=== PATIENT | female | born 1990 | race Two or more races ===

== ENCOUNTER 2018-07-12 19:53 | Inpatient (IN) | payer MEDICAID, OTHER ==
[2018-07-12] MEDS ORDERED: EPSOM SALT 454 GM TP PRN (20:42)
[2018-07-12] MEDS ORDERED: TERBUTALINE SULFATE 1 MG/ML VIAL IV PRN (20:42)
[2018-07-12] MEDS ORDERED: LIDOCAINE 1% 300 MG/30 ML SDV SC PRN (20:42)
[2018-07-12] MEDS ORDERED: OLIVE OIL 118 ML BTL MISC PRN (20:42)
[2018-07-12] MEDS ORDERED: IBUPROFEN 600 MG TAB PO PRN (20:42)
[2018-07-12] MEDS ORDERED: MISOPROSTOL 200 MCG TAB PO PRN (20:42)
[2018-07-12] MEDS ORDERED: LR 1,000 ML IV PRN (20:42)
[2018-07-12] MEDS ORDERED: OXYTOCIN/RINGERS LACTATE 1,000 ML IV PRN (20:42)
[2018-07-12] MEDS ORDERED: AMMONIA AROMATIC 1 EACH AMP IH PRN (20:42)
[2018-07-12] MEDS ORDERED: NALOXONE HCL 0.4 MG/ML INJ IVP PRN (20:50)
[2018-07-12] MEDS ORDERED: ONDANSETRON 4 MG/2 ML VIAL IVP PRN (20:50)
[2018-07-12] MEDS ORDERED: PHENYLEPHRINE HCL 100 MCG/ML SYR IVP PRN (20:50)
[2018-07-12] MEDS ORDERED: METOCLOPRAMIDE 10 MG/2 ML VIAL IVP PRN (20:50)
[2018-07-12] MEDS ORDERED: BUPIVACAINE 0.25% 10 ML SDV ONE (20:52)
[2018-07-12 20:59] LABS: PLATELET COUNT 146 10^3/uL (150-400)
[2018-07-12] MEDS ORDERED: fentaNYL 2MCG/ML/BUP 0.1% RTU 100 ML EP SCH (21:00)
--- NOTE | 2018-07-12 21:56 | PDANEPAE ---
ANE Past Medical History - Cardiovascular History Hx Hypertension: No Hx Arrhythmias: No Hx Chest Pain: No - Pulmonary History Hx COPD: No Hx Asthma/Reactive Airway Disease: No Hx Recent Upper Respiratory Infection: No - Neurologic History Hx Cerebrovascular Accident: No - Endocrine History Hx Diabetes: No - Renal History Hx Renal Disorders: No - Liver History Hx Hepatic Disorders: No ANE Review of Systems Review of Systems: ANE Patient History - Allergies Allergies/Adverse Reactions: No Known Allergies Allergy (Unverified 11/01/10 09:02) - Home Medications Home Medications: NO HOME MEDICATIONS 11/01/10 [Last Taken Unknown] ANE Labs/Vital Signs - Labs Result Diagrams: 07/12/18 20:30 ANE Physical Exam - Airway Neck exam: FROM Mallampati Score: Class 2 Mouth exam: normal dental/mouth exam - Pulmonary Pulmonary: no respiratory distress, no rales or rhonchi, clear to auscultation - Cardiovascular Cardiovascular: regular rate and rhythym, no murmur, rub, or gallop - ASA Status ASA Status: II, E ANE Anesthesia Plan Anesthesia Plan: epidural
--- NOTE | 2018-07-12 21:59 | OBPROG ---
Labor Progress Note Assessment/Plan: Assessment: 27 y/o @ 38 5/7 weeks in active labor Plan: Pt making good change now comfortable with her epidural. AROM for meconium, will have [employer] at delivery. May augment with pitocin prn. status is reassuring. 07/12/18 22:00 Subjective/Intrapartum Course: 07/12/18 21:55 Pt is now comfortable with her epidural, starting to feel some pelvic pressure. Objective: 07/12/18 20:30 Patient ABO/Rh O POSITIVE 07/12/18 20:30 - SVE Dilation (cm): 6, 7 Effacement (%): 80 Station: -1 Membranes: AROM Amniotic Fluid Color: Thick Meconium - Contraction Pattern Assessment Current Contraction Pattern: Irregular (Q 3-5) - FHR Assessment Loo FHR (bpm): 130 FHR Pattern Variability: Moderate FHR Category: 1 - Procedures Non-surgical Procedures: Amniotomy - AP Antepartum Course: 07/12/18 22:00 anxiety, elevated BMI ICD10 Worksheet Patient Problems: Problems Problem Status Onset Normal labor Acute - ICD10 Problem Qualifiers (1) Normal labor
--- NOTE | 2018-07-12 22:06 | GHP ---
[f rep st] PREOP HISTORY AND PHYSICAL DATE OF ADMISSION: 07/12/2018 ADMITTING DIAGNOSIS: Intrauterine at 39 and 5/7 weeks' gestation in spontaneous active lab or. HISTORY OF PRESENT ILLNESS: The patient is a 27-year-old, 1, para 0, with a last menstrual p eriod of 10/07/2017, and an EDC of 07/14/2018, which was confirmed by an 8-week ultrasound. She has had good care at [facility] since registration at 8 weeks' gestation. Her prenata l risk factors include elevated BMI. Her starting weight was 172. History of anxiety. Sh nancy is not on any current medications. Low lying placenta which resolved. She presented complaining o f increased contractions starting early in the morning on the , which became more intense and bill ser together. When she presented to labor and delivery, she was having contractions every 3-5 minute s and they were intense, bringing her to tears. Her cervix was checked and she was 5 cm, 80%, -2, wi th a bulging bag of water and she is admitted for active labor management and patient wished to have an epidural for pain control. PAST OBSTETRICAL HISTORY: None. This is her first . GYNECOLOGICAL HISTORY: Her menarche at age 16, interval every 28 days. Length of 5 days. Sure on r egular last menstrual period of October 07, 2017. No history of abnormal Paps or STDs. The patient was not on control. MEDICAL HISTORY: She has a history of anxiety. She was on Zoloft, but not for very long and she is not on any current medications. PAST SURGICAL HISTORY: No significant past surgical history. ALLERGIES: No known drug allergies. MEDICATIONS: Include vitamins, vitamin B6, and Unisom in 1st trimester. SOCIAL HISTORY: She is to her . 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 She d enies tobacco, alcohol, and drug use. Urine drug screen was negative. LABS IN THIS : She is O positive. Antibody negative. RPR nonreactive. Rubella immune. H epatitis negative. HIV negative. Initial urine culture was positive for E coli. A test of cure was negative. Verifi was negative. Single marker AFP was negative. One hour GTT was 87. GBS was nega tive. Varicella immune. FAMILY HISTORY: Her mother has diabetes, as well as history of thyroid cancer, had a thyroidectomy. PHYSICAL EXAMINATION: VITAL SIGNS: She was afebrile. Vital signs are stable. heart tones ar e 140s, reactive, moderate variability, category 1. She is cathleen irregularly. Cervix on admis humza was 5, 80%, -2, bulging bag of water. Baby is cephalic. ASSESSMENT/PLAN: 27-year-old, 1, para 0, at 38 and 5/7 weeks' gestation, in active labor. Gallito isacjoann was admitted, has an epidural per request. Will have active labor management and status is reassuring. /[id number]/MODL
[2018-07-12] MEDS ORDERED: LIDOCAINE 1% 300 MG/30 ML SDV ONE (22:49)
[2018-07-12] MEDS ORDERED: OLIVE OIL 118 ML BTL MISC ONE (22:49)
[2018-07-12] MEDS ORDERED: TERBUTALINE SULFATE 1 MG/ML VIAL ONE (22:49)
[2018-07-12] MEDS ORDERED: AMMONIA AROMATIC 1 EACH AMP IH ONE (22:49)
[2018-07-12] MEDS ORDERED: OXYTOCIN 10 UNIT/ML VIAL ONE (22:50)
[2018-07-12] MEDS ORDERED: MISOPROSTOL 200 MCG TAB ONE (22:50)
[2018-07-12] MEDS ORDERED: ACETAMINOPHEN 500 MG TAB PO PRN (23:41)
[2018-07-13] MEDS ORDERED: ACETAMINOPHEN 500 MG TAB PO ONE (06:15)
[2018-07-13] MEDS ORDERED: AZITHROMYCIN IV 500 MG in NS 250 ML IV ONE (07:14)
[2018-07-13] MEDS ORDERED: ceFAZolin 2 GM/DEXTROSE 100 ML IV ONE (07:15)
[2018-07-13] MEDS ORDERED: morphINE PF 5 MG/10 ML INJ ONE (07:39)
[2018-07-13] MEDS ORDERED: OXYTOCIN 100 UNITS/10 ML VIAL ONE (08:34)
[2018-07-13] MEDS ORDERED: PHENYLEPHRINE HCL 100 MCG/ML SYR IVP PRN (09:16)
[2018-07-13] MEDS ORDERED: HYDROCODONE/APAP 5/325 TAB PO PRN (09:16)
[2018-07-13] MEDS ORDERED: HYDROmorphONE/DILAUDID 1 MG/ML INJ IVP PRN (09:16)
[2018-07-13] MEDS ORDERED: NALOXONE HCL 0.4 MG/ML INJ IVP PRN (09:16)
[2018-07-13] MEDS ORDERED: ONDANSETRON 4 MG/2 ML VIAL IVP PRN (09:16)
[2018-07-13] MEDS ORDERED: MEPERIDINE 25 MG/0.5 ML AMP IVP PRN (09:16)
[2018-07-13] MEDS ORDERED: OXYCODONE/APAP 5/325 TAB PO PRN (09:16)
--- NOTE | 2018-07-13 09:17 | POSTANESTH ---
Post Anesthetic Evaluation Cardiovascular Status: Normal, Stable Respiratory Status: Normal, Stable Level of Consciousness/Mental Status: Can Participate in Eval Pain Control: Adequate, Prn Tx Ordered Nausea/Vomiting Control: Adequate, Prn Tx Ordered Complications Possibly Related to Anesthesia: None Noted
[2018-07-13] MEDS ORDERED: MAGNESIUM HYDROXIDE 30 ML UDCUP PO PRN (09:29)
[2018-07-13] MEDS ORDERED: BISACODYL 10 MG SUPP PR PRN (09:29)
[2018-07-13] MEDS ORDERED: POLYETHYLENE GLYCOL 3350 17 GM PKT PO PRN (09:29)
[2018-07-13] MEDS ORDERED: LACTULOSE 20 GM/30 ML UDCUP PO PRN (09:29)
--- NOTE | 2018-07-13 09:35 | POSTOPPROG ---
Post Op Note Date of Operation: 07/13/18 Surgeon: Nubia Roberts Health Plan Manager: Shari Dodd SA Anesthesiologist: MD Estela Anesthesia: Epidural (with duramorph) Pre-op Diagnosis: IUP at 38+ wks, arrest of descent Post-op Diagnosis: same Indication: IUP with spont labor, thick mec, 2 hrs pushing without change, OP position Procedure: primary LTCS Findings: normal uterus, OP position, mec noted, NC x1, nl closure, inf midline ext Inf/Abcess present in the surg proc area at time of surgery?: No Depth: Organ Space EBL: 500-1000 (1000) Total fluids administered: 500 Complications: inferior extension of incision in midline. closed well with good hemostasis, double layer Bowel Protocol: Yes Clean Closure Performed: Yes Specimen(s): none
[2018-07-13] MEDS: KETOROLAC 30 MG/1 ML SDV IVP SCH ×3 (10:20→22:29)
[2018-07-13] MEDS: IBUPROFEN 600 MG TAB PO SCH ×2 (11:07→16:42)
--- NOTE | 2018-07-13 16:05 | POSTANESTH ---
Post Anesthetic Evaluation Cardiovascular Status: Normal, Stable, Similar to Pre-Op Cond Respiratory Status: Normal, Stable, Similar to Pre-op Cond. Level of Consciousness/Mental Status: Can Participate in Eval, Alert and Oriented Pain Control: Adequate, Prn Tx Ordered Nausea/Vomiting Control: Adequate, Prn Tx Ordered Complications Possibly Related to Anesthesia: None Noted Notes: pt seen and examined. Block has completely resolved. BAck site c/d/i, no e/e/ e. No apparent ill effects from AARON.
[2018-07-13] MEDS: ACETAMINOPHEN 325 MG TAB PO SCH ×3 (16:20→22:31)
--- NOTE | 2018-07-13 18:31 | OBPP ---
Progress Note Assessment/Plan: Assessment: POD 1/2 s/p primary C/S Plan: routine care 07/13/18 18:28 Subjective/ Course: 07/13/18 18:31 Pt doing fine, has been OOB and amb in room. Was sitting for a bit and became light headed. No nausea. Had some discomfort and Toradol helped. Baby has latched good once but then pretty sleepy Objective: 07/12/18 20:30 Patient ABO/Rh O POSITIVE 07/12/18 20:30 Temp Pulse Resp BP Pulse Ox 36.8 C 99 16 90/45 L 96 07/13/18 15:00 07/13/18 18:18 07/13/18 18:18 07/13/18 15:00 07/13/18 18:18 Uterine Position/Fundal Height: Umbilicus -1 Uterine Tone: Firm Physical Exam - Physical Exam Abdomen: non-tender (approp post op tenderness), soft, dressing (CDI) Extremities: non-tender, pedal edema (minimal) Skin: normal color, warm/dry Neuro/Psych: alert, normal mood/affect
[2018-07-13] MEDS: SENNOSIDES/DOCUSATE SODIUM TAB PO SCH (22:31)
[2018-07-14] MEDS: ACETAMINOPHEN 325 MG TAB PO SCH ×5 (05:19→23:53)
[2018-07-14] MEDS: KETOROLAC 30 MG/1 ML SDV IVP SCH (05:50)
[2018-07-14] MEDS: IBUPROFEN 600 MG TAB PO SCH ×3 (12:23→23:52)
--- NOTE | 2018-07-14 12:28 | OBPP ---
Progress Note Assessment/Plan: Assessment: POD1 s/p PLTCS for arrest of descent. Routine cares, doing well for pain control. Hct 26 this AM from 36 preop - no clear s/sx of anemia, but patient has not ambulated much. No tachycardia, no hypotension, low suspicion for ongoing bleeding isues. Will start on BID iron and continue to observe re need for blood. Rh pos, Rubella immune. Selected Entries 07/12/18 20:44 Current Tetanus Yes Diphtheria and Acellular Pertussis (TDAP ) Laboratory Tests 12/18/17 07/12/18 07/12/18 16:10 20:30 20:30 Hct 36.7 L Rubella IgG Antibody 34.50 Patient ABO/Rh O POSITIVE 07/14/18 06:05 Hct 26.0 L Rubella IgG Antibody Patient ABO/Rh Subjective/ Course: Rachel is doing alright this morning - has not been up and around much. Bandage still on incision. Has tolerated some breakfast, pain well controlled. BF went okay overnight, baby wants to feed "all the time". Objective: 07/14/18 06:05 Patient ABO/Rh O POSITIVE 07/12/18 20:30 Temp Pulse Resp BP Pulse Ox 36.6 C 99 16 106/64 95 07/14/18 08:00 07/14/18 08:00 07/14/18 08:00 07/14/18 08:00 07/14/18 04:30 Uterine Position/Fundal Height: Umbilicus -2 Uterine Tone: Firm Physical Exam - Physical Exam Abdomen: soft, incision (Bandaged, no shadowing)
[2018-07-14] MEDS: oxyCODONE IR 5 MG TAB PO PRN (17:43)
[2018-07-14] MEDS: SENNOSIDES/DOCUSATE SODIUM TAB PO SCH ×2 (17:46→21:28)
[2018-07-14] MEDS: FERRO-SEQUELS 65 MG TAB.ER PO SCH (21:28)
[2018-07-15] MEDS: IBUPROFEN 600 MG TAB PO SCH ×4 (05:53→19:44)
[2018-07-15] MEDS: ACETAMINOPHEN 325 MG TAB PO SCH ×3 (05:53→19:44)
[2018-07-15] MEDS: FERRO-SEQUELS 65 MG TAB.ER PO SCH ×2 (09:40→19:44)
[2018-07-15] MEDS: SENNOSIDES/DOCUSATE SODIUM TAB PO SCH ×2 (10:08→22:44)
--- NOTE | 2018-07-15 11:37 | OBPP ---
Progress Note Assessment/Plan: Assessment: POD 2 s/p primary C/S anemia Plan: routine care, iron BID 07/13/18 18:28 07/15/18 11:34 Subjective/ Course: Rachel is doing alright this morning - has not been up and around much. Bandage still on incision. Has tolerated some breakfast, pain well controlled. BF went okay overnight, baby wants to feed "all the time". 07/15/18 11:34 Pt doing well. Bld is light. Pain well controlled with ibu/tyl - only infreq using narcs. urinating fine. Wants to stay tonight and d/c tomorrow . baby is latching well. Objective: 07/14/18 06:05 Patient ABO/Rh O POSITIVE 07/12/18 20:30 Temp Pulse Resp BP Pulse Ox 36.8 C 74 16 109/71 97 07/15/18 09:09 07/15/18 09:09 07/15/18 09:09 07/15/18 09:09 07/15/18 09:09 Uterine Position/Fundal Height: Umbilicus -1 Uterine Tone: Firm Physical Exam - Physical Exam Abdomen: non-tender (approp post op tenderness), soft, incision (CDI), other ( FF at umb -1) Extremities: non-tender, pedal edema (mild) Skin: normal color, warm/dry Neuro/Psych: alert, normal mood/affect
[2018-07-15] MEDS: oxyCODONE IR 5 MG TAB PO PRN ×2 (13:23→18:35)
[2018-07-15 20:24] VITALS: BP 101/66
[2018-07-16] MEDS: IBUPROFEN 600 MG TAB PO SCH ×2 (01:11→07:44)
[2018-07-16] MEDS: ACETAMINOPHEN 325 MG TAB PO SCH ×3 (01:11→13:10)
[2018-07-16] MEDS: FERRO-SEQUELS 65 MG TAB.ER PO SCH (07:44)
[2018-07-16] MEDS: SENNOSIDES/DOCUSATE SODIUM TAB PO SCH (07:45)
--- NOTE | 2018-07-16 10:14 | OBPP ---
Progress Note Assessment/Plan: Assessment: pod# 3 s/p PLTCS arrest of descent anemia - on iron anxiety - stable routine discharge and follow up instructions Plan: 07/16/18 10:11 Subjective/ Course: Rachel is doing alright this morning - has not been up and around much. Bandage still on incision. Has tolerated some breakfast, pain well controlled. BF went okay overnight, baby wants to feed "all the time". 07/15/18 11:34 Pt doing well. Bld is light. Pain well controlled with ibu/tyl - only infreq using narcs. urinating fine. Wants to stay tonight and d/c tomorrow . baby is latching well. 07/16/18 10:12 patient is doing well. pain is well controlled. using minimal oxycodone. normal lochia. denies headache and changes in vision. is pumping a large amount. still working on latch and breast feeding. passing gas and had a bowel movement. voiding without difficulty. wants to go home. Objective: 07/14/18 06:05 Patient ABO/Rh O POSITIVE 07/12/18 20:30 Temp Pulse Resp BP Pulse Ox 36.4 C 80 18 101/66 97 07/15/18 20:00 07/15/18 20:00 07/15/18 20:00 07/15/18 20:00 07/15/18 20:00 Physical Exam - Physical Exam Neck: non-tender, full range of motion, supple, normal inspection Respiratory: chest non-tender, lungs clear, normal breath sounds Cardiac/Chest: normal peripheral pulses, regular rate, rhythm Abdomen: normal bowel sounds, non-tender, other (fundus firm and non tender) Extremities: normal range of motion, non-tender, normal inspection, normal capillary refill Skin: normal color, warm/dry, other (incision clean dry and intact) Neuro/Psych: no motor/sensory deficits, alert, normal mood/affect, oriented x 3
--- NOTE | 2018-07-16 10:18 | OBGCSDC ---
General Delivery Information - General Info : 1 Para: 1 Abortions: 0 Type: Primary L&D Analgesia/Anesthesia Type: Epidural Admission Date: 07/12/18 Labs: Patient ABO/Rh O POSITIVE 07/12/18 20:30 Hct 26.0 % (38.0-47.0) L 07/14/18 06:05 - Hospital Course Antepartum: 07/12/18 22:00 anxiety, elevated BMI Intrapartum: 07/12/18 21:55 Pt is now comfortable with her epidural, starting to feel some pelvic pressure. : Rachel is doing alright this morning - has not been up and around much. Bandage still on incision. Has tolerated some breakfast, pain well controlled. BF went okay overnight, baby wants to feed "all the time". 07/15/18 11:34 Pt doing well. Bld is light. Pain well controlled with ibu/tyl - only infreq using narcs. urinating fine. Wants to stay tonight and d/c tomorrow . baby is latching well. 07/16/18 10:12 patient is doing well. pain is well controlled. using minimal oxycodone. normal lochia. denies headache and changes in vision. is pumping a large amount. still working on latch and breast feeding. passing gas and had a bowel movement. voiding without difficulty. wants to go home. Vaginal - Diagnosis Amniotic Fluid Color: Thick Meconium - Procedures Non-surgical Procedures: Amniotomy - Delivery Providers Surgeon: Nubia Roberts - Delivery Non-surgical Procedures: Amniotomy [place] Data ELVIA: 07/14/18 Gestational Age: 40 week(s) and 2 day(s) Loo Delivery Date: 07/13/18 Delivery Time: 08:32 Sex of Infant: Male Weight (gm): 3525 g Score (1 Min): 8 Score (5 Min): 9 Discharge Information - Discharge Information Prescriptions: oxyCODONE IR [Oxycodone Ir (*)] 5 mg PO Q4HRS PRN #5 tab PRN Reason: Pain, Severe Able To Take Po Condition: Good Instruction/Follow Up: Two Weeks (incision check), Four Weeks (mood check), Six Weeks (post visit)
== END 2018-07-16 13:30 | disposition home or self-care (01) | DRG 540 ==
LOC: FLD 19:53 → OBSVTOIN 19:53 → FOB 07-13 11:00
PROVIDERS: ADMIT Obstetrics & Gynecology; ATTEND Obstetrics & Gynecology
PROC: 10D00Z1 Extraction of Products of Conception, Low, Open Approach (ICD-10-PCS; principal; 2018-07-13)
DX: O32.4XX0 Maternal care for high head at term, not applicable or unspecified (principal); O77.0 Labor and delivery complicated by meconium in amniotic fluid; O99.03 Anemia complicating the puerperium; O99.344 Other mental disorders complicating childbirth; F41.8 Other specified anxiety disorders; Z3A.40 40 weeks gestation of pregnancy; Z37.0 Single live birth
CPT/HCPCS: J0456; J0690; J1885; J2274; J2590; J3105